=== PATIENT | female | born 1980 | race Caucasian/White ===

== ENCOUNTER → 2016-04-05 | Outpatient (CLI) | payer BC ==
[2016-04-05 08:18] LABS: Basophils % (A) 0 %; CH 31.6; CHCM 33.6; Eosinophils # (A) 0.2 k/uL (0-0.7); Eosinophils % (A) 3 %; HDW 2.13; HGB 14.1 gm/dL (11.4-16.0); Luc % (Auto) 1; Lymphocytes # (A) 1.5 k/uL (1.0-4.8); Lymphocytes % (A) 22 %; MCH 30.9 pg (25.0-35.0); MCHC 32.7 g/dL (31.0-37.0); MCV 94.5 fL (80.0-100.0); Mean Platelet Volume 8.5; Monocytes # (A) 0.6 k/uL (0-1.0); Monocytes % (A) 9 %; Neutrophils # (A) 4.2 k/uL (1.3-7.7); Neutrophils % (A) 64 %; RBC 4.55 m/uL (3.80-5.40); RDW 12.6 % (11.5-15.5); WBC 6.6 k/uL (3.8-10.6); WBC (Perox) 6.81
[2016-04-05 08:38] LABS: ALT 26 U/L (9-52); AST 15 U/L (14-36); Alkaline Phosphatase 56 U/L (38-126); Anion Gap 12 mmol/L; Blood Urea Nitrogen 7 mg/dL (7-17); Calcium 9.5 mg/dL (8.4-10.2); Carbon Dioxide 25 mmol/L (22-30); Chloride 108 mmol/L (98-107); Cholesterol 181 mg/dL (<200); Glucose 90 mg/dL (74-99); HDL Cholesterol 54 mg/dL (40-60); Non-African American GFR(MDRD) >60 (>60 ml/min/1.73 sqM); Potassium 4.4 mmol/L (3.5-5.1); Sodium 145 mmol/L (137-145); Total Bilirubin 0.5 mg/dL (0.2-1.3); Total Protein 7.2 g/dL (6.3-8.2); Triglycerides 50 mg/dL (<150)
== END | disposition home or self-care (01) ==
LOC: LABWHC1 07:42
PROVIDERS: ATTEND Internal Medicine
DX: Z00.00 Encounter for general adult medical examination without abnormal findings (principal)
CPT/HCPCS: 36415; 80053; 80061; 84443; 85025

== ENCOUNTER → 2019-10-25 | Outpatient (CLI) | payer BC ==
--- NOTE | 2019-10-29 13:16 | MM ---
Reason for exam: clinical finding. Indicated problem(s): lump or thickening in the left breast. Physical Findings: Nurse did not find any significant physical abnormalities on exam. MG 3D Diag Mammo W/Cad MARVEL Bilateral CC and MLO view(s) were taken. The breast tissue is heterogeneously dense. This may lower the sensitivity of mammography. Finding #1: There is a 11 mm mass in the lower quadrant, central position of the left breast. Finding #2: There are two grouped/clustered calcifications in the upper quadrant, central position of the left breast. These results were verbally communicated with the patient and result sheet given to the patient on 10/25/19. ASSESSMENT: Suspicious, BI-RAD 4 RECOMMENDATION: Stereotactic core biopsy of the left breast. (two sites) Called Dr. Armijo's office with mammographic findings and has scheduled an appointment for the patient with Dr. Escalera. Biopsy scheduled for 11/20/19 at 8:00. PRELIMINARY REPORT CALLED AND FAXED TO DR. ESCALERA ON 10/29/19.
--- NOTE | 2019-10-29 13:18 | USB ---
Reason for exam: clinical finding. US Breast Limited LT Left limited breast ultrasound including focal area of concern, retroareolar and axilla demonstrates a 11 x 9 x 13mm oval, solid, hypoechoic lesion at 7 o'clock. These results were verbally communicated with the patient and result sheet given to the patient on 10/25/19. ASSESSMENT: Suspicious, BI-RAD 4 RECOMMENDATION: Ultrasound core biopsy of the left breast. Called Dr. Armijo's office with mammographic findings and has scheduled an appointment for the patient with Dr. Escalera. Biopsy scheduled for 11/20/19 at 8:00. PRELIMINARY REPORT CALLED AND FAXED TO DR. ESCALERA ON 10/29/19.
== END | disposition home or self-care (01) ==
LOC: RADMAMWWP 14:48
PROVIDERS: ATTEND Obstetrics & Gynecology Obstetrics
DX: N63.20 Unspecified lump in the left breast, unspecified quadrant (principal)
CPT/HCPCS: 77062; 77066

== ENCOUNTER → 2019-11-20 | Day surgery (SDC) | payer BC ==
[2019-11-20 07:45] VITALS: RESP 16
--- NOTE | 2019-11-20 10:07 | MM ---
Stereotactic Mammotome core biopsy left breast 2 sites. HISTORY: 2 sites for microcalcifications The microcalcifications in question within the left breast were targeted by the undersigned. Procedu re was performed by the undersigned. Informed consent was obtained and all of the patients questions were answered. The standard sterile technique was utilized and appropriate local anesthesia was obta ined at each site with 1% lidocaine. Deep anesthesia was obtained with 1% lidocaine and epinephrine. Mammotome probe was advanced and multiple core samples were obtained at site A and then site B. sampl es were sent to pathology for interpretation. Microclip markers were deployed at the sites of biops y. Post procedural mammogram demonstrates appropriate deployment of radiopaque clip marker. The pat ient tolerated the procedure well and left the department in stable condition. Pathology results are pending. IMPRESSION: Successful stereotactic core biopsy left breast 2 sites with pathology results pending.
--- NOTE | 2019-11-20 10:09 | USB ---
EXAMINATION TYPE: US biopsy breast VAD LT DATE OF EXAM: 11/20/2019 CLINICAL HISTORY: R92.8 ABN MAMMO. TECHNIQUE: Ultrasound guided core biopsy of left 7:00 breast. COMPARISON: NONE FINDINGS: The procedure of ultrasound guided core biopsy was explained to the patient. Benefits, alt ernatives, and risks were discussed. An informed consent was then obtained. The patient was placed in supine positioning for imaging and for the procedure. The overlying skin w as prepped and draped in usual sterile fashion. Lidocaine buffered with bicarbonate was used as anes thetic into the skin and subcutaneous tissue up to area of concern in the left breast. A luisa was ma de with surgical scalpel. Under ultrasound guidance, a 12-gauge vacuum assisted biopsy gun device was used to obtain 3 core joyce ples. Following this, a biopsy clip was left in lesion. Postprocedural mammogram demonstrates appro priate clip placement. The patient tolerated the procedure well without any immediate complication. The patient was kept in the radiology department for short stay after the procedure and then discharged home in stable condi tion. IMPRESSION: Successful, uncomplicated ultrasound guided core biopsy of area of concern in the left 7: 00 breast, full pathology results to follow.
[2019-11-20 10:21] VITALS: BP 112/72; PULSE 55; TEMP 98
== END ==
LOC: RADMAMWWP 07:31
PROVIDERS: ATTEND Surgery
DX: D24.2 Benign neoplasm of left breast (principal); N60.12 Diffuse cystic mastopathy of left breast; R92.0 Mammographic microcalcification found on diagnostic imaging of breast
CPT/HCPCS: 88305; 19081; 19082; 19083; A4648 ×2; J2001

== ENCOUNTER → 2020-05-19 | Outpatient (CLI) | payer BC ==
--- NOTE | 2020-05-19 09:53 | MM ---
Reason for exam: follow-up at short interval from prior study. Last mammogram was performed 7 months ago. History: Benign MG stereo VAD BX addl LT of the left breast, November 20, 2019. Benign MG stereo VAD BX LT of the left breast, November 20, 2019. Benign US biopsy breast VAD LT of the left breast, November 20, 2019. Physical Findings: Nurse Summary: 1cm nodule in the left breast at 6 o'clock (nurse dw). MG 3D Diag Mammo W/Cad LT CC and MLO view(s) were taken of the left breast. Prior study comparison: October 25, 2019, bilateral MG 3d diag mammo w/cad MARVEL. The breast tissue is heterogeneously dense. This may lower the sensitivity of mammography. Finding: There are stable, fine, grouped/clustered calcifications in a curvicular pattern in the 8-9 o'clock lower inner quadrant, middle position of the left breast. Marker correlates with prior biopsy site. No significant changes in finding since October 25, 2019. These results were verbally communicated with the patient and result sheet given to the patient on 05/19/20. ASSESSMENT: Benign, BI-RAD 2 RECOMMENDATION: Routine screening mammogram of both breasts in 5 months. Back on schedule for October 2020.
== END ==
LOC: RADMAMWWP 07:45
PROVIDERS: ATTEND Surgery
DX: R92.1 Mammographic calcification found on diagnostic imaging of breast (principal)
CPT/HCPCS: 77061; 77065

== ENCOUNTER → 2020-10-26 | Outpatient (CLI) | payer BC ==
--- NOTE | 2020-10-27 09:12 | MM ---
Reason for exam: screening (asymptomatic). Last mammogram was performed 5 months ago. History: Benign MG stereo VAD BX addl LT of the left breast, November 20, 2019. Benign MG stereo VAD BX LT of the left breast, November 20, 2019. Benign US biopsy breast VAD LT of the left breast, November 20, 2019. Physical Findings: A clinical breast exam by your physician is recommended on an annual basis and results should be correlated with mammographic findings. MG 3D Screening Mammo W/Cad Bilateral CC and MLO view(s) were taken. Prior study comparison: May 19, 2020, left breast MG 3d diag mammo w/cad LT. October 25, 2019, bilateral MG 3d diag mammo w/cad MARVEL. The breast tissue is heterogeneously dense. This may lower the sensitivity of mammography. Benign appearing bilateral calcifications, stable. Previous mammotome biopsy in the left breast. There is chronic nodularity in the left breast. No significant changes when compared with prior studies. ASSESSMENT: Benign, BI-RAD 2 RECOMMENDATION: Routine screening mammogram of both breasts in 1 year.
== END | disposition home or self-care (01) ==
LOC: RADMAMWWP 09:06
PROVIDERS: ATTEND Surgery
DX: Z12.31 Encounter for screening mammogram for malignant neoplasm of breast (principal)
CPT/HCPCS: 77063; 77067